=== PATIENT | male | born 1990 | race Caucasian/White ===

== ENCOUNTER 2019-01-30 15:27 | Emergency (ER) | payer MEDICAID ==
[2019-01-30] MEDS ORDERED: TDAP ADULT 0.5 ML INJ (BOOSTRIX) IM ONE (15:37)
--- NOTE | 2019-01-30 15:38 | EDPHY ---
H & P Time Seen by Provider: 01/30/19 15:31 HPI/ROS: CHIEF COMPLAINT: Skin lesion right volar forearm HISTORY OF PRESENT ILLNESS: 28-year-old male with out-of-date tetanus complaining of highly pruritic linear vesicular skin lesion right volar forearm. Nontender. No lymphangitic streaking. Present for the past 4 days. PHYSICAL EXAM (Prior to examination, patient consented to physical exam, hands were washed and my usual and customary physical exam procedures followed) 1) GENERAL: Well-developed, well-nourished, alert and oriented. Appears to be in no acute distress. 2) HEAD: Normocephalic 3) HEENT: sclera anicteric 4) LUNGS: Breathing comfortably. 5) SKIN: Right volar distal forearm linear vesicular lesion. Nontender. Excoriated with no signs of super infection. Soft compartments. No crepitus. Allergies/Adverse Reactions: No Known Allergies Allergy (Unverified 01/30/19 15:36) Home Medications: Medication Instructions Recorded Gabapentin 01/30/19 MDM/Departure - [facility] ED Course/Re-evaluation: I think the patient's right forearm lesion is secondary to poison pearl dermatitis. There is no evidence of super infection. We discussed supportive care and protecting the area from being excoriated. His tetanus has been updated and he will be discharged home. Patient feels comfortable being discharged. All questions and concerns addressed by myself. Patient given my usual and customary discharge precautions and instructions regarding their clinical impression. Care of patient under supervision of secondary supervising physician Dr Cardoso. - Depart Disposition: Home, Routine, Self-Care Clinical Impression: Poison pearl dermatitis Condition: Good Instructions: Poison Pearl (ED) Additional Instructions: Return to the ER if you develop redness, swelling, discharge, warmth to the wound, red streaks going up your arm, or any other symptoms that concern you. Try not to scratch the area. Referrals: [facility],. [Clinic] - 2-3 days, call for appt.
[2019-01-30 15:39] VITALS: BP 126/85
== END 2019-01-30 15:53 | disposition home or self-care (01) ==
DX: L23.7 Allergic contact dermatitis due to plants, except food (principal); Z23 Encounter for immunization